=== PATIENT | female | born 1995 | race Caucasian/White ===

== ENCOUNTER 2022-02-28 14:14 | Emergency (ER) | payer MEDICAID, SELFPAY ==
[2022-02-28 14:32] VITALS: BP 126/84; PULSE 74; RESP 16; TEMP 36.4; O2SAT 100
[2022-02-28 14:33] VITALS: BP 126/84; PULSE 74; RESP 16; TEMP 36.4; O2SAT 100
--- NOTE | 2022-02-28 14:43 | ED.FEMALEGU ---
HPI - Female Genitourinary General Chief complaint: Urogenital-Female Stated complaint: throwing up /right side and low back pain Time Seen by Provider: 02/28/22 14:38 Source: patient and RN notes reviewed Mode of arrival: ambulatory Limitations: no limitations History of Present Illness HPI Narrative: patient states that she has been having some symptoms for 5 days with some low back soreness and possible UTI symptoms. She was at her rag collector yesterday getting a routine Pap smear mentions symptoms to her and was started on Macrobid. Comes in today with same symptoms but because of the low back pain she was concerned about kidney stones. MD elicited complaint: UTI and back pain Onset (ago): day(s) (5) Severity: mild Quality of pain: dull and aching Consistency: constant Vaginal discharge: none Vaginal bleeding: none Exacerbating factors: none Relieving factors: none Associated symptoms: nausea and vomiting Treatment prior to arrival: none Sexual activity: Yes Patient : No Related Data Allergies Allergy/AdvReac Type Severity Reaction Status Date / Time No Known Allergies Allergy Verified 02/28/22 14:32 Review of Systems Review of Systems: All systems reviewed & are unremarkable except as noted in HPI and below Constitutional: Constitutional: Denies chills Genitourinary: Genitourinary: Reports as per HPI, Denies hematuria, Denies nocturia and Denies dysuria Exam Const: General: healthy appearing, no acute distress and alert Nutritional Appearance: well nourished Orientation/consciousness: patient oriented x3 Limitations: no limitations Other: Female nurse in room during examination. HENMT: Head: normal to inspection Ears: external ears normal Eyes: Conjunctivae: conjunctivae normal Pupils: Equal, round and reactive pupils present EOM: EOMs intact bilaterally Neck: Neck: normal visual inspection Chest: Chest palpation & inspection: normal inspection of the chest Resp: Effort & Inspection: normal respiratory effort Auscultation: clear to auscultation bilaterally Cardio: Rate: regular rate Rhythm: regular rhythm GI: GI Palp: Yes Soft to palpation and No Tenderness to palpation present (GI) Auscultation: normal bowel sounds Back/Spine/Pelvis: Back: no CVA tenderness Cervical Spine: cervical ROM normal Thoracic/Lumbar Spine: thoraco-lumbar ROM normal Skin: General skin exam: normal color Rashes: no rashes Neuro: General: patient oriented x3, moves all extremities, no focal motor deficits and CN's II-XI intact bilaterally Speech: normal speech Gait exam (Neuro): Normal gait present Extrem: General: normal to inspection and no clubbing, cyanosis or edema Psych: Appearance: grossly normal and well kempt Mental Status: mental status grossly normal Affect: normal affect Attitude: cooperative Course Vital Signs Vital signs: Vital Signs Temperature 36.4 C L 02/28/22 14:32 Pulse Rate 74 02/28/22 14:32 Respiratory Rate 16 02/28/22 14:32 Blood Pressure 126/84 02/28/22 14:32 Pulse Oximetry 100 02/28/22 14:32 Oxygen Delivery Room Air 02/28/22 14:32 Temperature 36.4 C L 02/28/22 15:17 Pulse Rate 74 02/28/22 15:17 Respiratory Rate 16 02/28/22 15:17 Blood Pressure 126/84 02/28/22 15:17 Pulse Oximetry 100 02/28/22 15:17 Oxygen Delivery Room Air 02/28/22 15:17 MDM - Female Genitourinary Lab Data Attestation: I reviewed the patient's lab results. Labs: Lab Results 02/28/22 Range/Units 14:44 Urine Color Dark orange (Yellow) Urine Appearance Clear (Clear) Urine pH 7.5 (5.0-8.0) Ur Specific [place] 1.015 (1.010-1.020) Urine Protein 1+ H (Negative) Urine Glucose (UA) Negative (Negative) Urine Ketones 1+ H (Negative) Ur Blood (Man) 1+ H (Negative) Urine Nitrate Negative (Negative) Urine Bilirubin Negative (Negative) Urine Urobilinogen 0.2 (0.2-1.0) mg/dL Leukocyte Esterase Rfl 1+ H (Negat
[2022-02-28 14:57] LABS: Appearance Urine Clear (Clear); Bilirubin Urine Negative (Negative); Blood Urine 1+ (Negative); Glucose Urine UA Negative (Negative); Ketones Urine 1+ (Negative); Leukocyte Esterase Ur 1+ LEU/UL (Negative); Nitrate Urine Negative (Negative); Protein Urine 1+ (Negative); Specific Grav Ur 1.015 (1.010-1.020); Urobilinogen Urine 0.2 mg/dL (0.2-1.0); pH Urine 7.5 (5.0-8.0)
[2022-02-28 15:05] LABS: Add Urine Microscopic? YES; Bacteria Urine 2+ /hpf; Color Urine Dark Orange (Yellow); Squamous Epithelial Cell Urine Few /hpf (Few)
[2022-02-28 15:17] VITALS: BP 126/84; PULSE 74; RESP 16; TEMP 36.4; O2SAT 100
--- NOTE | 2022-03-03 12:46 | PC.NURSE ---
URINE CULTURE FINAL RESULT: NO GROWTH
== END 2022-02-28 15:18 | disposition home or self-care (01) ==
PROVIDERS: Emergency Provider Emergency Medicine; PCP Nurse Practitioner
DX: N30.00 Acute cystitis without hematuria (principal)
CPT/HCPCS: 81001; 87086; 99283

== ENCOUNTER 2022-03-03 16:31 | Observation (INO) | payer MEDICAID, SELFPAY ==
--- NOTE | ~2022-03-03 | CT_ITS ---
EXAMINATION: CT abdomen pelvis w con DATE: 03/03/2022 18:43 INDICATION: Right lower quadrant abdominal pain. Vomiting. TECHNIQUE: Computed tomography (CT) of the abdomen and pelvis was performed with 100 mL Omnipaque 350 intravenous contrast. Automated exposure control and iterative reconstruction technique were employe d. The dose-length product was 175.14 mGy-cm. COMPARISON: None. FINDINGS: The visualized portions of the lung bases demonstrate minimal atelectasis on the left. No p leural effusion. The heart size is normal. No pericardial effusion. The liver, gallbladder, spleen, p ancreas, and adrenal glands are normal. There is a 6 mm stone in right kidney. There is a delayed rig ht-sided contrast nephrogram. There is moderate right hydronephrosis. There is a 6 mm stone in proxim al right ureter. There is a 5 mm stone in the left kidney. There are no dilated loops of bowel. The a ppendix is normal. There are no pathologically enlarged lymph nodes. There is physiologic fluid in th e pelvis. There is mild lumbar spondylosis. IMPRESSION: 1. 6 mm stone in proximal right ureter with moderate right hydronephrosis. 2. Bilateral nonobstructing kidney stones. Reviewed, dictated and finalized at location A.
--- NOTE | ~2022-03-03 | XR_ITS ---
XR abdomen/kub 1V 03/04/2022 10:52 Indication: KUB. Right ureteral stone. Procedure: KUB Comparison: CT dated 03/03/2022 Findings: There is an obstructing stone in the proximal aspect of the right ureter measuring approxim ately 7 mm. There is moderate right hydroureteronephrosis. Bowel gas pattern nonobstructive. No acute osseous abnormality. Impression: 1: Obstructing 7 mm proximal right ureteral stone with moderate hydronephrosis. Reviewed, dictated and finalized at location A. Impression: 1: Obstructing 7 mm proximal right ureteral stone with moderate hydronephrosis.
[2022-03-03 17:19] VITALS: BP 131/93; PULSE 73; RESP 14; TEMP 36.7; O2SAT 99
[2022-03-03 17:31] LABS: Basophils Absolute Auto 0.1 K/mm3 (0.0-0.1); Basophils Percent Auto 0.8 % (0.2-1.2); Eosinophils Percent Auto 0.6 % (0-4.4); Hematocrit 37.4 % (37.0-47.0); Hemoglobin 12.6 g/dL (12.0-15.0); Immature Granulocyte Absolute 0.01 K/mm3 (0.00-0.031); Immature Granulocyte Percent A 0.2 % (0-0.5); Lymphocytes Absolute Auto 2.36 K/mm3 (0.9-3.2); Lymphocytes Percent Auto 35.9 % (18.3-44.2); Mean Corpuscular HGB Conc 33.7 g/dl (32-36); Mean Corpuscular Hemoglobin 31.5 pg (26-34); Mean Corpuscular Volume 93.5 fl (80-100); Mean Platelet Volume 10.9 fl (7.4-10.4); Monocytes Absolute Auto 0.7 K/mm3 (0.1-0.6); Monocytes Percent Auto 10.6 % (2.6-8.5); Neutrophils Absolute Auto 3.4 K/mm3 (1.3-6.7); Neutrophils Percent Auto 51.9 % (45.5-73.1); Platelet Count Result 248 k/mm3 (150-375); Red Cell Distribution Width 11.5 % (11.5-14.5); White Blood Count 6.6 K/mm3 (4.5-10.0)
[2022-03-03 17:41] LABS: Alanine Aminotransferase 15 U/L (6-35); Albumin Level 4.6 g/dL (3.5-5.1); Alkaline Phosphatase 62 U/L (38-126); Anion Gap 10 mmol/L (8-16); Aspartate Amino Transferase 19 U/L (14-36); Bilirubin,Total 0.7 mg/dL (0.2-1.3); Blood Urea Nitrogen 10 mg/dL (7-17); Calcium 9.6 mg/dL (8.4-10.2); Carbon Dioxide 26 mmol/L (22-30); Chloride 99 mmol/L (98-107); Estimated CRCL calculation 65 ml/min; Estimated Glomerular Filt Rate > 60; Glucose 81 mg/dL (65-110); Lipase 34 U/L (23-300); Potassium 4.5 mmol/L (3.4-5.0); Sodium 135 mmol/L (137-145)
--- NOTE | 2022-03-03 17:59 | ED.ABDPAIN ---
HPI - Abdominal Pain General Chief Complaint: Abdominal Pain Stated Complaint: abd pain Time Seen by Provider: 03/03/22 17:43 Source: patient Mode of arrival: ambulatory Limitations: no limitations History of Present Illness HPI narrative: This is a 27-year-old female that presents to the emergency department for abdominal pain. Ongoing over the last couple of days. Associated with nausea and vomiting. Reports she is currently taking Macrobid for UTI. Also reports right-sided flank pain. She does have history of kidney stones. Denies fevers. Related Data Allergies Allergy/AdvReac Type Severity Reaction Status Date / Time No Known Allergies Allergy Verified 03/03/22 18:03 Review of Systems Review of Systems: CONSTITUTIONAL: Denies fever GASTROINTESTINAL: Reports abdominal pain, nausea, vomiting GENITOURINARY: Denies dysuria or hematuria. All systems reviewed & are unremarkable except as noted in HPI and below PMFSH Past Medical History Medical History (Updated 03/03/22 @ 23:43 by Rayne Asher PA-C) No active medical problems Social History Social History (Updated 03/03/22 @ 18:01 by Rayne Asher PA-C) Smoking status: Current every day smoker Tobacco type: e-cigarettes/vaping Exam Narrative: GENERAL: Well-appearing, well-nourished, and in no acute distress. HEAD: Normocephalic, atraumatic. EYES: EOMI. CHEST: Clear to auscultation. No respiratory distress. No wheezes rales or rhonchi HEART: Regular rate and rhythm. No murmur heard. Normal peripheral pulses. ABDOMEN: Soft, nondistended, normal active bowel sounds. Mild tenderness to palpation in the right lower quadrant without guarding. Right-sided CVA tenderness EXTREMITIES: Normal range of motion. No edema. SKIN: Warm, dry, no rash. NEURO: No focal deficits. Alert and oriented x3. PSYCH: Normal mood and affect Course Consultations Consultation #1: Spoke with Dr. Larios about patient and work-up. Patient will be admitted for pain control and possible stent placement tomorrow. Date: 03/03/22 Consultation #2: Spoke with hospitalist about patient and work-up who accepts admission Date: 03/03/22 Vital Signs Vital signs: Vital Signs Temperature 98.1 F 03/03/22 17:19 Pulse Rate 73 03/03/22 17:19 Respiratory Rate 14 03/03/22 17:19 Blood Pressure 131/93 H 03/03/22 17:19 Pulse Oximetry 99 03/03/22 17:19 Oxygen Delivery Room Air 03/03/22 17:19 Temperature 98.1 F 03/03/22 22:57 Pulse Rate 53 L 03/03/22 22:26 Respiratory Rate 18 03/03/22 22:26 Blood Pressure 124/85 03/03/22 22:26 Pulse Oximetry 100 03/03/22 22:26 Oxygen Delivery Room Air 03/03/22 17:19 MDM - Abdominal Pain MDM Narrative Medical decision making narrative: Patient presents to the emergency department for right-sided abdominal pain. Ongoing over the last 5 days. She is afebrile and nontoxic-appearing. Her vitals are stable. CBC metabolic panel without concerning findings. UA with evidence of infection and some dehydration. Patient hydrated with IV fluids in the ED and started on IV antibiotics. Urine sent for culture. Bedside test is negative. CT scan of the abdomen pelvis shows a 6 mm stone in the proximal right ureter with moderate right hydronephrosis. Patient and family updated on case findings. Patient reports she does still feel quite uncomfortable after multiple IV pain medications. Spoke with Dr. Larios about patient and work-up. Patient will be admitted for pain control and possible stent placement tomorrow. Spoke with hospitalist about patient and work-up who accepts admission Lab Data Attestation: I reviewed the patient's lab results. Result diagrams: 03/03/22 17:26 03/03/22 17:26 Labs: Lab Results 03/03/22 03/03/22 03/03/22 Range/Units 17:26 17:26 17:30 WBC 6.6 (4.5-10.0) K/mm3 RBC 4.00 L (4.2-5.4) M/mm3 Hgb 12.6 (12.0-15.0) g/dL Hct 37.4 (37.0-
[2022-03-03 18:20] LABS: Appearance Urine Clear (Clear); Bilirubin Urine 1+ (Negative); Blood Urine 2+ (Negative); Color Urine Yellow (Yellow); Glucose Urine UA Negative (Negative); Ketones Urine 4+ mg/dL (Negative); Leukocyte Esterase Ur 1+ LEU/UL (Negative); Nitrate Urine Negative (Negative); Protein Urine 1+ mg/dL (Negative); Urobilinogen Urine 0.2 mg/dL (<2.0); pH Urine 6.5 (5.0-9.0)
[2022-03-03 18:27] LABS: Bacteria Urine Trace /hpf; Calcium Oxalate Crystals Urine Many /hpf; Mucus Urine Rare /lpf; RBC Urine 51-75 /hpf (0-2); Squamous Epithelial Cell Urine Many /hpf (Few); WBC Urine 51-75 /hpf
[2022-03-03 18:32] VITALS: TEMP 36.7
[2022-03-03 18:33] LABS: Add Urine Microscopic? YES
[2022-03-03] MEDS: SODIUM CHLORIDE 0.9% IV 1,000 ML 999 ML IV CONT ×2 (18:42→19:43)
[2022-03-03 19:26] LABS: Influenza A QL RT-PCR Negative (Negative); Influenza B QL RT-PCR Negative (Negative); SARS-CoV-2 RNA PCR Negative
[2022-03-03] MEDS: MORPHINE SULFATE (*CRX) 4 MG/ML INJ IV PUSH ×2 (19:43→22:27)
[2022-03-03] MEDS: ONDANSETRON INJ 4 MG/2 ML VIAL IV PUSH (19:44)
[2022-03-03 20:13] VITALS: TEMP 36.7
--- NOTE | 2022-03-03 22:18 | PM.IMHP ---
H&P: HPI History of Present Illness Date/Time: 03/03/22 22:18 Chief Complaint: flank pain. Narrative: This is a 27-year-old female with past medical history significant for urolithiasis, patient presents today to the emergency room due to right-sided flank pain, chills, nausea, vomiting. Patient states that this started roughly a week ago and has progressively gotten worse over the course of the days prompting her to come to the emergency room. Preliminary workup was significant for urinalysis with 50-75 wbc's per high-power field. A CT of abdomen and pelvis was reported as: IMPRESSION: 1. 6 mm stone in proximal right ureter with moderate right hydronephrosis. 2. Bilateral nonobstructing kidney stones. Review of Systems Review of Systems: right-sided flank pain, nausea, vomiting, poor appetite. Constitutional: Constitutional: Reports chills and Reports poor appetite Eyes: Eyes: Denies change in vision ENT: Denies dysphagia, Denies vertigo and Denies odynophagia Cardiovascular: Cardiovascular: Denies chest pain, Denies leg edema, Denies lightheadedness, Denies palpitations and Denies dyspnea on exertion Respiratory: Respiratory: Denies chest congestion, Denies cough and Denies dyspnea Gastrointestinal: Gastrointestinal: Denies dyspepsia, Denies heartburn, Denies diarrhea, Reports nausea and Reports vomiting Genitourinary: Genitourinary: Reports dysuria and Reports flank pain Musculoskeletal: Musculoskeletal: Denies myalgias, Denies joint swelling and Denies limited range of motion Integumentary/Breasts: Skin/Breast: Denies rash Neurologic: Denies focal weakness and Denies Sensory deficit (Neuro) Psychiatric: Psychiatric: Reports no additional psychiatric complaints Endocrine: Endocrine: Denies cold intolerance, Denies flushing, Denies heat intolerance, Denies polyphagia, Denies polydipsia and Denies palpitations Hematologic/Lymphatic: Hematologic/Lymphatic: Reports no additional hematologic/lymphatic complaints and Reports as per HPI Allergic/Immunologic: Allergic/Immunologic: Reports no additional allergic/immunologic complaints and Reports as per HPI PMFSH Past Medical History Medical History (Updated 03/04/22 @ 02:02 by Radha Royal MD) No active medical problems Family History Family History (Updated 03/03/22 @ 23:49 by Hong Rowe RN) Mother Skin cancer Social History Social History (Updated 03/03/22 @ 18:01 by Rayne Asher PA-C) Smoking status: Current every day smoker Tobacco type: e-cigarettes/vaping Additional smoking assessment comments: Pt currently vapes Has the Lack of Transportation Kept You From Medical Appointments or From Getting Medications?: No Within the Past 12 Months, Were You Worried Whether Your Food Would Run Out Before You Got Money to Buy More?: Never True What is Your Housing Situation Today?: I Have Housing Are You Worried That in the Next 2 Months, You May Not Have Your Own Housing to Live In?: No Do You Have Trouble Paying Your Heating Or Electricity Bill?: No Do You Have Trouble Paying For Medicines?: No Are You Currently Unemployed and Looking for Work?: No Highest Level of Education Completed: High School Diploma/GED Do You Have Trouble With Childcare or the Care of a Family Member?: No Spiritual care concerns: No Meds Home Medications and Allergies Home Medications Medication Instructions Recorded Confirmed Type nitrofurantoin 100 mg PO BID 03/03/22 03/03/22 History monohydrate/macrocrystals 100 mg capsule (Macrobid) ondansetron 4 mg disintegrating 4 mg PRN PRN Nausea 03/03/22 03/03/22 History tablet Allergies Allergy/AdvReac Type Severity Reaction Status Date / Time No Known Allergies Allergy Verified 03/03/22 18:03 Vital Signs Vital Signs - 24 hr 03/03/22 17:19 Temperature 98.1 F Pulse Rate 73 Respiratory Rate 14 Blood Pressure 131/93 H Pulse Oximetry 99 Oxygen Delivery Room A
[2022-03-03 22:26] VITALS: BP 124/85; PULSE 53; RESP 18; O2SAT 100
[2022-03-03 22:57] VITALS: TEMP 36.7
[2022-03-03 23:46] VITALS: BMI 19.2
[2022-03-03 23:49] VITALS: BMI 19.1
--- NOTE | 2022-03-03 23:54 | ADMGEN ---
This patient, Raz Ramesh, was admitted to [facility] Surg Room 311-01. Patient/family oriented to hospital policies and general routines including ID bracelet, bed and alarms, visiting hours, pain management, procedures, bathroom and other care routines, personal items, smoking policy, room service/diet, and visiting hours. Information on how to activate the Rapid Response Team has been discussed. Patient/Family are encouraged to report perceived risks to care and to ask questions if they do not understand what they are told or what they should do.
[2022-03-04] VITALS: BP 119/68; PULSE 55; RESP 18; TEMP 36.4; O2SAT 90
[2022-03-04] MEDS: SODIUM CHLORIDE 0.9% IV 1,000 ML 125 ML IV CONT ×2 (00:05→08:01)
[2022-03-04 06:00] VITALS: BP 116/66; PULSE 66; RESP 18; TEMP 36; O2SAT 97
[2022-03-04] MEDS: ONDANSETRON INJ 4 MG/2 ML VIAL IV PUSH (08:01)
[2022-03-04] MEDS: ENOXAPARIN 40 MG/0.4 ML SYRINGE SUB-Q (09:35)
--- NOTE | 2022-03-04 10:44 | WPDURCON ---
Assessment and Plan Assessment and plan (1) Ureterolithiasis: Code(s): N20.1 - Calculus of ureter Status: Acute Assessment and Plan: 27 yo female with bilateral renal stones, right ureter stone -pain currently 0/10, well controlled, normal vitals, normal wbc, normal Cr, ua contaminated with squams, but has expected rbc's and some wbc, nitrite negative - we discussed management of ureter stones in detail- we discussed observation, trial of passage, placement of ureter stent, ESWL and URS -we discussed the pertinent risks/benefits/alternatives/nature of each approach and potential complications -given her pain is well controlled she elects for a trial of passage with straining urine, flomax and po narcotics. -we will obtain KUB - she will avoid ASA, fish oil, NSAIDS, MVI to decrease bleeding risks -plan for close followup in office this week, if stone fails to pass with conservative therapy she desires ESWL -outpatient cysto for? voiding dysfunction and assessment of urethra and bladder given self described voiding complaint -ok to give diet and dc home later today if pain controlled -if pain returns, worsens, fevers/chills or other concerning symptoms develop she was instructed to come back to ER. Urology Consult Note HPI Date Seen: 03/04/22 Requesting Physician: Rain Adams PA-C Primary Care Provider: Dayna Hutchinson, ELECT[employer] EQUIPMENT [employer]BLER Consult Narrative Narrative: Raz Ramesh is a 27 year old female with acute onset of right renal colic. She was found to have a 6 mm stone on the right ureter on CT. Her pain was colicky and radiated to the RLQ. 1 prior hx of stones. No family hx of stones. Denies gross hematuria, dysuria, fevers chills. Pain this am is 0/10. She had nausea yesterday which has resolved. She is hungry. She is a vegan. No prior urologic interventions, denies incontinence, however she thinks her urination is not right and she thinks she may urinate out of her ueterus? No prior trauma, no hx of or HEALTH RESEARCHER surgery, no prior or obstetrical trauma Review of Systems Review of Systems: right-sided flank pain, nausea, vomiting, poor appetite. Constitutional: Constitutional: Reports no additional constitutional complaints, Denies body ache(s), Denies chills, Denies night sweats and Denies poor appetite Eyes: Eyes: Denies change in vision ENT: Denies dysphagia, Denies vertigo and Denies odynophagia Cardiovascular: Cardiovascular: Denies chest pain, Denies leg edema, Denies lightheadedness, Denies palpitations and Denies dyspnea on exertion Respiratory: Respiratory: Denies chest congestion, Denies cough and Denies dyspnea Gastrointestinal: Gastrointestinal: Denies dyspepsia, Denies heartburn, Denies diarrhea, Reports nausea and Reports vomiting Genitourinary: Genitourinary: Denies dysuria, Denies pelvic pain, Reports flank pain and Denies urinary urgency Musculoskeletal: Musculoskeletal: Denies myalgias, Denies joint swelling and Denies limited range of motion Integumentary/Breasts: Skin/Breast: Denies rash Neurologic: Denies focal weakness and Denies Sensory deficit (Neuro) Psychiatric: Psychiatric: Reports no additional psychiatric complaints Endocrine: Endocrine: Denies cold intolerance, Denies flushing, Denies heat intolerance, Denies polyphagia, Denies polydipsia and Denies palpitations Hematologic/Lymphatic: Hematologic/Lymphatic: Reports no additional hematologic/lymphatic complaints and Reports as per HPI Allergic/Immunologic: Allergic/Immunologic: Reports no additional allergic/immunologic complaints and Reports as per HPI PMFSH Past Medical History Medical History (Updated 03/04/22 @ 02:02 by Radha Royal MD) No active medical problems Family History Family History (Updated 03/03/22 @ 23:49 by Hong Rowe RN) Mother Skin cancer Social History Social History (Updated 03/03/22 @ 18:01 by RASHAD Pike-Sanjiv) Smoking status: Current every day smok
[2022-03-04 11:27] LABS: INR 1.1; Prothrombin Time 14.1 Seconds (11.1-14.7)
--- NOTE | 2022-03-04 14:18 | PM.DS ---
DS: Admitting Diagnosis Discharge Date 03/04/22 Admitting Diagnosis Ureterolithiasis DS: Discharge Diagnosis Discharge Diagnosis (1) Ureterolithiasis: Code(s): N20.1 - Calculus of ureter Status: Acute Assessment and Plan: Presented with flank pain. CT showed 6 mm stone in proximal right ureter with moderate hydronephrosis. She was seen in consultation by Urology. Opted for outpatient observation with trial of stone passage. She will continue to strain her urine. Prescribed Flomax and short course of [place] for pain. She will follow-up in the office within the week for follow-up and will be scheduled for ESWL stone is not passed. (2) Urinary tract infection: Code(s): N39.0 - Urinary tract infection, site not specified Status: Acute Assessment and Plan: Presented with dysuria ongoing for several days. Had been taking Macrobid at home with no improvement. UA on presentation was abnormal with 1+ leuk esterase and 51-75 WBC with many squamous cells. She was started on IV Ceftriaxone. Urine culture with no bacterial growth however given persistent symptoms wihtout improvement with macrobid, decision made to treat with 5 day course of Cefdinir. (3) Nausea and vomiting: Code(s): R11.2 - Nausea with vomiting, unspecified Status: Acute Assessment and Plan: Likely secondary to above. Overall symptomatic improvement with antiemetics. Patient was able to tolerate a solid diet. DS: Summary Hospital Course Hospital Course: Date of admission: 03/03/2022 Date of discharge: 03/04/2022 Raz Ramesh is a 27-year-old female with history of kidney stones and recent chlamydia infection in January who completed antibiotic therapy and is awaiting repeat test of cure who presented to the emergency department on 03/03/2022 with complaints of abdominal pain several days associated with nausea and vomiting. On presentation to the ED, her vital signs are stable, she was afebrile, laboratory workup unremarkable, UA with 2+ blood, 1+ leuk esterase, many squamous cells, CT of the abdomen/pelvis showed 6 mm stone in the proximal right ureter with moderate right hydronephrosis and bilateral nonobstructing kidney stones. Patient was admitted to the hospitalist service for further evaluation and management and was seen in consultation by Urology. Please see above for further details. She was feeling much improved felt comfortable with plans for discharge home. She will follow-up with urology in 1 week for close monitoring. Discussed with patient and her family worrisome signs and symptoms for which to return and she was educated on her medications. She was discharged in hemodynamically stable condition on 03/04/2022. Time Spent with Patient Time attestation: Total time spent providing and/or coordinating discharge services: 45 minutes Time spent: Greater than 30 minutes Exam Narrative: General: well-nourished, well-appearing 27-year-old female, sitting up in bed, comfortable, NARD Neuro: awake, alert and oriented x4, speech clear, no focal neuro deficits noted HEENMT: normocephalic, atraumatic, EOMI, sclerae anicteric Respiratory: clear to auscultation bilaterally, nonlabored breathing Cardio: regular rate, regular rhythm with S1-S2 Abdomen: nondistended, normoactive bowel sounds, soft, nontender to palpation : no CVA tenderness Extremities: no edema, erythema, or tenderness to palpation, DP pulses 2+ bilaterally Skin: no rashes or lesions, warm and dry Psych: appropriate mood and affect, judgment and insight intact DS: Data Data Completed and Pending Labs on day of discharge: Labs from last 24 hours 03/04/22 03/03/22 03/03/22 11:11 18:24 17:30 WBC RBC Hgb Hct MCV MCH MCHC RDW Plt Count MPV Immature Gran % (Auto) Neut % (Auto) Lymph % (Auto) Potter % (Auto) Eos % (Auto) Baso % (Auto) Lymph # (Auto) Potter # (Aut
== END 2022-03-04 15:00 | disposition home or self-care (01) ==
LOC: ANHED 17:58 → ANH3MEDSUR 23:43
PROVIDERS: Emergency Medicine; Physician Assistant; Urology; Admitting Provider Internal Medicine; Emergency Provider Emergency Medicine; PCP Nurse Practitioner; Visit Provider Physician Assistant
DX: N13.2 Hydronephrosis with renal and ureteral calculous obstruction (principal); N39.0 Urinary tract infection, site not specified; B37.9 Candidiasis, unspecified; R10.9 Unspecified abdominal pain; Z32.02 Encounter for pregnancy test, result negative; F17.290 Nicotine dependence, other tobacco product, uncomplicated; Z20.822 Contact with and (suspected) exposure to COVID-19; Z79.899 Other long term (current) drug therapy
CPT/HCPCS: 36415; 74018; 74177; 80053; 81001; 81025; 83690; 85025; 85610; 87086; 87088; 87106; 87502; 96361; 96365; 96372; 96375; 96376; 99285; G0378; J0131; J0696; J1650; J2270; J2405; J7030; Q9967; U0003; U0005

== ENCOUNTER → 2022-03-09 12:09 | Outpatient (CLI) | payer SELFPAY ==
--- NOTE | ~2022-03-09 | XR_ITS ---
XR abdomen/kub 1V DATE: 03/09/2022 12:31 INDICATION: Right ureteral stone TECHNIQUE: AP projection, 2 views COMPARISON: 03/04/2022 KUB 02/23/2022 CT abdomen pelvis with IV contrast material FINDINGS: A calcification overlies the right ureter at the L3-4 level, slightly proximal to its posit ion at the mid to lower L4 level on 03/04/2022. A calcified stone is noted in each kidney. There is a moderately prominent of fecal material in the colon. No bowel obstruction is evident. The psoas shadows are intact. The lung bases are clear. Heart size appears normal. IMPRESSION: Calcified calculus right ureter at L3-4 level Bilateral nephrolithiasis Moderately prominent amount fecal material in the colon; no bowel obstruction Reviewed, dictated and finalized at Location A. Reviewed, dictated and finalized at location A.
== END ==
PROVIDERS: PCP Nurse Practitioner; Visit Provider Urology
DX: N20.1 Calculus of ureter (principal); N20.0 Calculus of kidney
CPT/HCPCS: 74018